=== PATIENT | male | born 1965 | race Caucasian/White ===

== ENCOUNTER 2017-11-20 10:04 | Emergency (ER) | payer OTHER ==
[2017-11-20 10:15] VITALS: RESP 18; O2SAT 96
--- NOTE | 2017-11-20 10:31 | EDPHY ---
H & P Time Seen by Provider: 11/20/17 10:31 HPI/ROS: CHIEF COMPLAINT: Cold hands and feet HISTORY OF PRESENT ILLNESS: Patient is a history of multiple sclerosis who presents with cold hands and feet over the last 40 min. He was at work started feeling like his hands and feet were just really cold the could not get warm. He also felt a little bit clumsy but did not have any paresthesia or actual motor weakness. No environmental cold exposure. This is associated with a little bit of chest tightness which she is having this morning for the last few hours. Does not radiate not associated with cough shortness of breath radiation nausea vomiting or diaphoresis. REVIEW OF SYSTEMS: Eye: no change in vision ENT: no sore throat Cardiac: HPI no syncope Pulmonary: no cough or SOB Abdomen: no vomiting, diarrhea, abdominal pain Musculoskeletal: HPI, no back or neck pain Skin: no rash Neuro: no headache Constitutional: no fever : no urinary symptoms A comprehensive 10 point review of systems is otherwise negative aside from elements mentioned in the history of present illness. 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 Eyes: No scleral icterus. ENT, Mouth: Normal mucous membranes. Respiratory: Normal respiratory effort, breath sounds equal, lungs are clear to auscultation. Cardiovascular: Regular rate and rhythm. Normal capillary refill in both hands and both feet, normal dorsalis pedis and radial pulses bilaterally. Gastrointestinal: Abdomen is soft and non tender. Neurological: Alert, face symmetric, normal motor and sensory in extremities. 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 He is ambulatory. Normal extraocular motion. Speech is fluent. Skin: Warm and dry, no rashes. No discoloration extremities. Musculoskeletal: No peripheral edema. Psychiatric: Not agitated. Emergency Department course/MDM: Patient states his primary concern is that he might have PML. 1144: Dr. Ovalle, his neurologist at [facility] consulted. He requested that I reassured the patient that PML would be unlikely. We discussed patient's entire presentation including his database, Neurology recommendation that he be discharged with reassurance. Discussed with the patient who says his symptoms are improving. Smoking Status: Never smoked Constitutional: Initial Vital Signs Temperature (C) 36.5 C 11/20/17 10:10 Heart Rate 92 11/20/17 10:10 Respiratory Rate 18 03/22/18 10:10 Blood Pressure 120/76 11/20/17 10:10 O2 Sat (%) 96 11/20/17 10:10 O2 Delivery Mode Room Air Allergies/Adverse Reactions: No Known Allergies Allergy (Verified 11/20/17 10:11) Home Medications: Medication Instructions Recorded Dimethyl Fumarate [Tecfidera] 240 mg PO BID 11/20/17 Medical Decision Making - Diagnostics EKG Interpretation: 12-lead EKG interpreted by me; official reading is in trace master. My interpretation is sinus rhythm rate 82, no ischemic changes Differential Diagnosis: Differential considered including but not limited to frostbite, Raynaud's, vascular occlusion both arterial and venous, multiple sclerosis exacerbation. - Data Points Laboratory Results: Laboratory Results 11/20/17 10:30 11/20/17 10:30 11/20/17 11/20/17 10:30 10:30 WBC 3.36 10^3/uL L 10^3/uL (3.80-9.50) RBC 5.15 10^6/uL 10^6/uL (4.40-6.38) Hgb 16.2 g/dL g/dL (13.7-17.5) Hct 43.6 % % (40.0-51.0) MCV 84.7 fL fL (81.5-99.8) MCH 31.5 pg pg (27.9-34.1) MCHC 37.2 g/dL H g/dL (32.4-36.7) RDW 11.7 % % (11.5-15.2) Plt Count 212 10^3/uL 10^3/uL (150-400) MPV 9.1 fL fL (8.7-11.7) Neut % (Auto) 55.1 % % (39.3-74.2) Lymph % (Auto) 31.5 % % (15.0-45.0) Archer % (Auto) 10.7 % % (4.5-13.0) Eos % (Auto) 1.8 % % (0.6-7.6) Baso % (Auto) 0.6 % % (0.3-1.7) Nucleat RBC Rel Count 0.0 % % (0.0-0.2) Absolute Neuts (auto) 1.85 10^3/uL 10^3/uL (1.70-6.50) Absolute Lymphs (auto) 1.06 10^3/uL 10^3/uL (1.00-3.00) Absolute Monos (auto) 0.36 10^3/uL 10^3/uL (0.30-0.80) Absolute Eos (auto) 0.06 10^3/uL 10^3/uL (0.03-0.40) Absolute Basos (auto) 0.02 10^3/uL 10^3/uL (0.02-0.10) Absolute Nucleated RBC 0.00 10^3/uL 10^3/uL (0-0.01) Immature Gran % 0.3 % % (0.0-1.1) Immature Gran # 0.01 10^3/uL 10^3/uL (0.00-0.10) Sodium 142 mEq/L mEq/L (135-145) Potassium 3.9 mEq/L mEq/L (3.5-5.2) Chloride 100 mEq/L mEq/L (97-110) Carbon Dioxide 26 mEq/l mEq/l (22-31) Anion Gap 16 mEq/L mEq/L (8-16) BUN 14 mg/dL mg/dL (7-23) Creatinine 0.8 mg/dL mg/dL (0.7-1.3) Estimated GFR > 60 Glucose 98 mg/dL mg/dL (70-100) Calcium 8.9 mg/dL mg/dL (8.5-10.4) Troponin I < 0.012 ng/mL ng/mL (0.000-0.034) Departure - Departure Disposition: Home, Routine, Self-Care Clinical Impression: Chest pain Qualifiers: Chest pain type: unspecified Qualified Code(s): R07.9 - Chest pain, unspecified Condition: Good Instructions: Chest Pain (ED) Additional Instructions: Discussed with your neurologist Dr. Ovalle at [facility]. Your MRI will be scheduled for sooner than April, they will contact you. Referrals: RAVI ADAMS [Other] - As per Instructions
--- NOTE | 2017-11-20 10:45 | CPEKG ---
Heart Rate: 82 RR Interval: 732 P-R Interval: 156 QRSD Interval: 94 QT Interval: 364 QTC Interval: 425 P [place]: 42 QRS [place]: 39 T Wave [place]: 3 EKG Severity - NORMAL ECG - EKG Impression: SINUS RHYTHM Electronically Signed By: John Lopez 20-Nov-2017 12:55:24
[2017-11-20 10:51] LABS: PLATELET COUNT 212 10^3/uL (150-400)
[2017-11-20 12:00] VITALS: BP 109/86; PULSE 93; TEMP 98.4
== END 2017-11-20 12:01 | disposition home or self-care (01) ==
DX: R07.9 Chest pain, unspecified (principal)